=== PATIENT | female | born 1990 | race Caucasian/White ===

== ENCOUNTER 2020-03-17 17:59 | Emergency (ER) | payer OTHER, SELFPAY ==
[2020-03-17 18:07] VITALS: BP 109/63; PULSE 70; RESP 16; TEMP 36.6; O2SAT 100
--- NOTE | 2020-03-17 18:19 | ED.GENADULT ---
HPI - General Adult General Chief complaint: Ear Stated complaint: jaw pain/lump on jaw Time Seen by Provider: 03/17/20 18:19 Source: patient and RN notes reviewed Mode of arrival: ambulatory Limitations: no limitations History of Present Illness HPI narrative: 29-year-old female presents with complaints of painful and swollen lump behind right ear for 1 day. Denies swimming. Yuly says she gets water into ears when washing hair. Denies trouble hearing. Denies URI symptoms, No high fevers or chills. Denies injury to the ear. No nasal drainage and congestion. Denies nausea, vomiting, tinnitus, and dizziness. LMP 1 week ago which is irregular due to Nexplanon. The patient reports she have not been diagnosed with COVID-19. The patient reports she is not waiting for the results of a COVID-19 lab test. The patient reports she do not have fever, chills, weakness, fatigue, myalgia, or facial swelling. The patient reports she do not have a new or worsening cough or shortness of breath. Denies chest pain. The patient reports she do not have any rhinorrhea, congestion, sore throat, loss of taste, abdominal pain, and diarrhea. Tolerating po intake well. Denies recent traveling. Denies concerns for COVID-19 or exposures been home with limited outdoor exposure except for essential household needs and return home. At this time, patient is not suspected of having COVID-19. Some parts of this dictation were generated by voice recognition software and may contain typographical and/or grammatical inaccuracies. Related Data Allergies Allergy/AdvReac Type Severity Reaction Status Date / Time No Known Drug Allergies Allergy Unknown Verified 03/17/20 18:21 Review of Systems Review of Systems: Narrative: CONSTITUTIONAL: Denies fever, chills, sweats. EYES: Denies visual changes, redness, discharge. ENT: Denies rhinorrhea, congestion, sore throat, otalgia, drainage, itching. Complains of pain and swelling behind RT ear. CARDIOVASCULAR: Denies chest pain, palpitations, edema. RESPIRATORY: Denies dyspnea, wheezing, cough. GASTROINTESTINAL: Denies abdominal pain, nausea, vomiting, diarrhea. GENITOURINARY: Denies dysuria, hematuria, abnormal discharge. SKIN: Denies rash or itching. MUSCULOSKELETAL: Denies acute back pain, joint pain, or myalgia. NEUROLOGIC: Denies numbness or focal weakness. PSYCHIATRIC: Denies anxiety or depression. All systems reviewed & are unremarkable except as noted in HPI and below PMFSH Past Medical History Medical History (Updated 03/17/20 @ 18:37 by GIRISH Magdaleno) Asthma Childhood Smoker TMJ (dislocation of temporomandibular joint) Surgical History Surgical History (Updated 03/17/20 @ 18:37 by GIRISH Magdaleno) History of dental surgery [place] teeth Family History Family History (Updated 03/17/20 @ 18:38 by GIRISH Magdaleno) Father Unknown family medical history Mother Degenerative joint disease Of the spine Social History Social History (Updated 03/17/20 @ 18:39 by GIRISH Magdaleno) Smoking packs per day: 1 Smoking cigarettes per day: 20.0 Years smoked: 14 Smoking pack-years: 14.00 Smoking status: Current every day smoker Tobacco type: cigarettes Second hand tobacco smoke exposure: Yes Alcohol intake: never Substance use: current Substance use type: marijuana Living arrangements: with family Occupation/Education: unemployed Gender identity (if verbalized by the patient): Female Sexual Orientation (if Verbalized by the Patient): Straight or Heterosexual Comments At time of signature, agree with nurse past medical, surgical, social, and family history. There is relevant patient's past medical history pertinent to the presenting complaint, no relevant family history pertinent to the presenting complaint. Exam Narrative: Exam Narrative: GENERAL: This is a well-nourished, well-developed patient, in no apparent distress.
== END 2020-03-17 18:38 | disposition home or self-care (01) ==
PROVIDERS: Emergency Provider Nurse Practitioner Family; PCP Family Medicine
DX: H60.391 Other infective otitis externa, right ear (principal); F17.210 Nicotine dependence, cigarettes, uncomplicated
CPT/HCPCS: 99203; G0463

== ENCOUNTER 2021-05-26 08:30 | Emergency (ER) | payer OTHER, SELFPAY ==
[2021-05-26 08:38] VITALS: BP 111/68; PULSE 91; RESP 18; TEMP 36.6; O2SAT 98
--- NOTE | 2021-05-26 08:49 | ED.URI ---
HPI - URI/Sore Throat General Chief Complaint: Upper Respiratory Infection Stated Complaint: Sore Throat Time Seen by Provider: 05/26/21 08:50 Source: patient and RN notes reviewed Mode of arrival: ambulatory Limitations: no limitations History of Present Illness HPI Narrative: 31-year-old female presents concern for sore throat. Reports sore throat for several days that has now evolved into right ear pain. Reports she was exposed to a neighbor with strep throat. She reports occasional nasal congestion, cough. She denies fever, body aches, chills, sweats, headache, nausea, vomiting. Reports she is not vaccinated for Covid. MD elicited complaint: sore throat Related Data Home Medications Medication Instructions Recorded Confirmed etonogestrel [Nexplanon] 68 mg SUBDERMAL ONCE 05/26/21 05/26/21 Allergies Allergy/AdvReac Type Severity Reaction Status Date / Time No Known Drug Allergies Allergy Unknown Verified 05/26/21 08:51 Review of Systems Review of Systems: CONSTITUTIONAL: Denies malaise, chills, sweats, or fever. EYES: Denies visual changes, redness, or discharge. ENT: Reports rhinorrhea, congestion, sinus pain. Reports rhinorrhea, right otalgia and sore throat. CARDIOVASCULAR: Denies chest pain, palpitations, or edema. RESPIRATORY: Reports cough. Denies dyspnea. GASTROINTESTINAL: Denies abdominal pain, nausea, vomiting, diarrhea SKIN: Denies rash or itching. MUSCULOSKELETAL: Denies myalgia. NEUROLOGIC: Denies headache. All systems reviewed & are unremarkable except as noted in HPI and below PMFSH Past Medical History Medical History (Updated 05/26/21 @ 08:57 by Marlin Ellison NP) Asthma Childhood Smoker TMJ (dislocation of temporomandibular joint) Surgical History Surgical History (Updated 03/17/20 @ 18:37 by GIRISH Magdaleno) History of dental surgery [place] teeth Family History Family History (Updated 03/17/20 @ 18:38 by GIRISH Magdaleno) Father Unknown family medical history Mother Degenerative joint disease Of the spine Social History Social History (Updated 03/17/20 @ 18:39 by GIRISH Magdaleno) Smoking packs per day: 1 Smoking cigarettes per day: 20.0 Years smoked: 14 Smoking pack-years: 14.00 Smoking status: Current every day smoker Tobacco type: cigarettes Second hand tobacco smoke exposure: Yes Alcohol intake: never Substance use: current Substance use type: marijuana Gender identity (if verbalized by the patient): Female Sexual Orientation (if Verbalized by the Patient): Straight or Heterosexual Comments At time of signature, agree with nursing past medical, surgical, social and family history. There is no relevant family history pertinent to the presenting complaint Exam Narrative: GENERAL: Well-appearing, well-nourished, and in no acute distress. HEAD: Normocephalic EYES: PERRLA, conjunctivae clear ENT: Nares clear, clear discharge. Mucous membranes moist. TM pearly varela with dull light reflex bilaterally; no tragal tenderness. Oropharynx erythematous without lesions. Tonsils enlarged and without exudate, no drooling, no hoarseness, no trismus, uvula midline. NECK: Supple. No lymphadenopathy CHEST: Clear to auscultation, breath sounds equal. No wheezing, rhonchi, rales, or stridor. No respiratory distress, speaks in full sentences. HEART: Regular rate and rhythm. No murmur heard. SKIN: Warm, dry, no rash. NEURO: Alert and oriented x3. PSYCH: Normal mood and affect Course Course Emergency Course: Patient is aware of diagnosis, understands and agrees to treatment plan. Anticipatory guidance given. Patient agrees to follow-up as directed and is aware of reasons to seek care at the emergency department. Portions of this record may have been created with voice recognition software Vital Signs Vital signs: Vital Signs Temperature 97.8 F 05/26/21 08:38 Pulse Rate 91 05/26/21 08:38 Respiratory Rate 18 05/26
== END 2021-05-26 09:00 | disposition home or self-care (01) ==
PROVIDERS: Emergency Provider Nurse Practitioner; PCP Family Medicine
DX: J02.0 Streptococcal pharyngitis (principal); F17.210 Nicotine dependence, cigarettes, uncomplicated
CPT/HCPCS: 87880; 99213; G0463

== ENCOUNTER 2022-06-08 14:58 | Emergency (ER) | payer OTHER, SELFPAY ==
[2022-06-08 15:17] VITALS: BP 125/60; PULSE 95; RESP 16; TEMP 36.6; O2SAT 99
--- NOTE | 2022-06-08 15:49 | ED.URI ---
HPI - URI/Sore Throat General Chief Complaint: Upper Respiratory Infection Stated Complaint: cough runny nose chest tight aches Time Seen by Provider: 06/08/22 15:35 Source: patient and RN notes reviewed Mode of arrival: ambulatory Limitations: no limitations History of Present Illness HPI Narrative: 32-year-old female presenting for complaint of body aches, cough, and sinus congestion and drainage, onset yesterday. She endorses taking negative COVID test at home. She denies shortness of breath, wheezing, vomiting, fevers or chills. She endorses her son is sick with similar symptoms plus fever. Not taking anything for symptoms. Smokes 1ppd. MD elicited complaint: cough Related Data Home Medications Medication Instructions Recorded Confirmed etonogestrel 68 mg subdermal 68 mg subdermal ONCE 05/26/21 06/08/22 implant (Nexplanon) Allergies Allergy/AdvReac Type Severity Reaction Status Date / Time No Known Drug Allergies Allergy Unknown Verified 06/08/22 15:22 Review of Systems Review of Systems: CONSTITUTIONAL: denies malaise, chills, sweats, fever EYES: Denies visual changes, redness, or discharge ENT: Reports rhinorrhea, congestion,denies sinus pain, otalgia, sore throat CARDIOVASCULAR: Denies chest pain, palpitations, edema RESPIRATORY: Reports cough, post nasal drainage. Denies dyspnea GASTROINTESTINAL: Denies abdominal pain, nausea, vomiting, diarrhea SKIN: Denies rash or itching MUSCULOSKELETAL: Endorses myalgia PMFSH Past Medical History Medical History Asthma Childhood Smoker TMJ (dislocation of temporomandibular joint) Surgical History Surgical History History of dental surgery [place] teeth Family History Family History Father Unknown family medical history Mother Degenerative joint disease Of the spine Social History Social History Smoking packs per day: 1 Smoking cigarettes per day: 20.0 Years smoked: 14 Smoking pack-years: 14.00 Smoking status: Current every day smoker Tobacco type: cigarettes Second hand tobacco smoke exposure: Yes Alcohol intake: never Substance use: current Substance use type: marijuana Gender identity (if verbalized by the patient): Female Sexual Orientation (if Verbalized by the Patient): Straight or Heterosexual Exam Narrative: GENERAL: Ill-appearing, nontoxic EYES: PERRLA, conjunctivae clear ENT: Mucous membranes moist. TMs pearly varela with light reflex bilaterally; no tragal tenderness. Oropharynx erythematous without lesions or exudate, no drooling, no hoarseness, no trismus, uvula midline. CHEST: Clear to auscultation, breath sounds equal. No wheezing, rhonchi, rales, or stridor. No respiratory distress, speaks in full sentences. HEART: Regular rate and rhythm. No murmur heard. SKIN: Warm, dry, no rash. NEURO: Alert and oriented x3. PSYCH: Normal mood and affect Course Course Emergency Course: Patient is aware of diagnosis, understands and agrees to treatment plan. Anticipatory guidance given. Patient agrees to follow-up as directed and is aware of reasons to seek care at the emergency department. Portions of this record may have been created with voice recognition software Level of Care: Express Care Visit Vital Signs Vital signs: Vital Signs Temperature 98 F 06/08/22 15:17 Pulse Rate 95 06/08/22 15:17 Respiratory Rate 16 06/08/22 15:17 Blood Pressure 125/60 06/08/22 15:17 Pulse Oximetry 99 06/08/22 15:17 Oxygen Delivery Room Air 06/08/22 15:17 Temperature 98 F 06/08/22 15:17 Pulse Rate 95 06/08/22 15:17 Respiratory Rate 16 06/08/22 15:17 Blood Pressure 125/60 06/08/22 15:17 Pulse Oximetry 99 06/08/22 15:17 Oxygen Delivery Room Air
== END 2022-06-08 15:57 | disposition home or self-care (01) ==
PROVIDERS: Emergency Provider Nurse Practitioner Family
DX: B34.9 Viral infection, unspecified (principal); J45.909 Unspecified asthma, uncomplicated; F17.210 Nicotine dependence, cigarettes, uncomplicated
CPT/HCPCS: 87804; 99213; G0463

== ENCOUNTER → 2023-07-02 13:27 | Outpatient (CLI) | payer OTHER, SELFPAY ==
--- NOTE | ~2023-07-02 | US_ITS ---
EXAMINATION: US axilla RT INDICATION: Right axillary lymphadenopathy TECHNIQUE: Limited right axillary ultrasound is performed. COMPARISON: None available FINDINGS: There are multiple lymph nodes in the right axilla which demonstrate normal morphology. No suspicious right axillary lymphadenopathy is identified. IMPRESSION: 1. No suspicious right axillary lymphadenopathy identified. Reviewed, dictated and finalized at location A. [facility] JOINER
== END ==
PROVIDERS: PCP Obstetrics & Gynecology; Visit Provider Obstetrics & Gynecology
DX: R59.0 Localized enlarged lymph nodes (principal)
CPT/HCPCS: 76882

== ENCOUNTER 2025-07-12 14:08 | Emergency (ER) | payer OTHER, SELFPAY ==
[2025-07-12 14:14] VITALS: BP 108/70; PULSE 62; RESP 16; TEMP 36.3; O2SAT 99
--- NOTE | 2025-07-12 14:48 | ED.URI ---
HPI - URI/Sore Throat General Chief Complaint: Upper Respiratory Infection Stated Complaint: poss strep Time Seen by Provider: 07/12/25 14:48 Source: patient, RN notes reviewed and old records reviewed Mode of arrival: ambulatory Limitations: no limitations History of Present Illness HPI Narrative: 35-year-old female who presents to [facility] with complaints of sore throat for the past 5 days also with intermittent tenderness to left side of neck that radiates to her left ear, Patient also reports has fine rash on body for the past 3 days which is not itchy. Patient has not taken any OTC medications for her symptoms. MD elicited complaint: sore throat and other (rash) Pertinent past history: other (strep throat) Onset (ago): day(s) (5) Pain scale (0-10): 7 Able to tolerate fluids by mouth: Yes Treatments prior to arrival: none Related Data Home Medications ?Medication ?Instructions ?Recorded ?Confirmed ?Last Taken ?Type etonogestrel 68 mg subdermal 68 mg subdermal ONCE 05/26/21 06/08/22 Unknown History implant (Nexplanon) Allergies Allergy/AdvReac Type Severity Reaction Status Date / Time No Known Drug Allergies Allergy Unknown Verified 06/08/22 15:22 Review of Systems Review of Systems: CONSTITUTIONAL: Denies malaise, chills, sweats, or fever. EYES: Denies visual changes, redness, or discharge. ENT: Reports rhinorrhea, congestion, no sinus pain,+ otalgia and + sore throat. CARDIOVASCULAR: Denies chest pain, palpitations, or edema. RESPIRATORY: Reports dry cough.? Denies dyspnea. GASTROINTESTINAL: Denies abdominal pain, nausea, vomiting, diarrhea SKIN: reports rash or itching. MUSCULOSKELETAL: Denies myalgia. NEUROLOGIC: Denies headache. All systems reviewed & are unremarkable except as noted in HPI and below PMFSH Past Medical History Medical History (Updated 07/14/25 @ 13:12 by Sarah Guajardo APRN) Strep throat Smoker TMJ (dislocation of temporomandibular joint) Asthma Childhood Surgical History Surgical History History of dental surgery [place] teeth Family History Family History Father Unknown family medical history Mother Degenerative joint disease Of the spine Social History Social History Smoking packs per day: 1 Smoking cigarettes per day: 20.0 Years smoked: 14 Smoking pack-years: 14.00 Smoking status: Current every day smoker Tobacco type: cigarettes Second hand tobacco smoke exposure: Yes Alcohol intake: never Substance use: current Substance use type: marijuana Living arrangements: with family Occupation/Education: unemployed Gender identity (if verbalized by the patient): Female Sexual Orientation (if Verbalized by the Patient): Straight or Heterosexual Comments At time of signature, agree with nursing past medical, surgical, social and family history. There is no relevant family history pertinent to the presenting complaint Exam Narrative: GENERAL: Well-appearing, well-nourished, and in no acute distress. HEAD: Normocephalic EYES: PERRLA, conjunctivae clear ENT: Nares clear, turbinates edematous and erythematous, clear discharge. Mucous membranes moist. TM pearly varela with dull light reflex bilaterally; no tragal tenderness. Oropharynx erythematous without lesions. Tonsils red enlarged especially left and with exudate, no drooling, no hoarseness, no trismus, uvula midline.post nasal drainage noted NECK: Supple. positive for lymphadenopathy CHEST: Clear to auscultation, breath sounds equal. No wheezing, rhonchi, rales, or stridor. No respiratory distress, speaks in full sentences.no acute cough or congestion voiced SAO2 99% on room air HEART: Regular rate and rhythm. No murmur heard. SKIN: Warm, dry, fine red rash on body NEURO: Alert and oriented x3. PSYCH: Normal mood and affect Course Course Level of Care: Express Care Visit Vital Signs Vital signs: Vital Signs Temperature 36.3 C L 07/12/25 14:14 Pulse Rate 62 07/12/25 14:14 Respiratory Rate 16 07/12/25 14:14 Blood Pressure 108/70 07/12/25 14:14 Pulse Oximetry 99 07/12/25 14:14 Oxygen Delivery Room Air 07/12/25 14:14 Temperature 36.3 C L 07/12/25 14:14 Pulse Rate 62 07/12/25 14:14 Respiratory Rate 16 07/12/25 14:14 Blood Pressure 108/70 07/12/25 14:14 Pulse Oximetry 99 07/12/25 14:14 Oxygen Delivery Room Air 07/12/25 14:14 reviewed [facility] Narrative Medical decision making narrative: Patient has enlarged red swollen tonsils especially left with exudates, will treat with oral antibiotics and recommend symptoms control with OTC medications. Anticipatory guidance and when to seek care in ED reviewed with patient with voiced understanding Differential Diagnosis Differential Diagnosis: Differential diagnostic considerations for upper respiratory infection include upper respiratory infection, croup, otitis media, sinusitis, viral infection, bronchitis, influenza, pharyngitis, strep, uvulitis.? Lab Data [facility] Lab Attestation statement: I personally reviewed the patient's lab results. Lab results narrative: strep screen negative culture sent Labs: Lab Results 07/12/25 Range/Units 14:20 POC Grp A Strep Screen Negative (Negative) reviewed Critical Care Time Critical Care Time Critical Care Time: No Discharge Plan Discharge Clinical Impression: Exudative tonsillitis Patient Disposition: Home Condition: Stable Instructions: Antibiotic Form, Tonsillitis (ED) Additional Instructions: . Take the entire course of antibiotics. Throw away your current toothbrush and begin using a new toothbrush in 48 hours in order to prevent re-infection. Sanitize all reusable water bottles . Do not share items with others. Salt water gargles may alleviate some of the throat discomfort. You can take Tylenol or ibuprofen per the package instructions for pain/fever. Your strep test today was negative. A throat culture will be sent to the laboratory for further testing. Zyrtec Claritin or Arti daily If your symptoms persist, change or worsen significantly before you can contact your personal physician then please, without delay, go to the emergency department for further evaluation. Follow-up with PCP in 7-10 days or sooner if needed Patient Language: [place] Citizen Prescriptions: New amoxicillin 875 mg tablet 875 mg PO Q12H Qty: 20 0RF No Action Nexplanon 68 mg implant 68 mg SUBDERMAL ONCE Follow-up/Referrals: PHYSICIAN NOT ON STAFF,NONSTAFF [Primary Care Provider] Time of Disposition: 15:00 Quality Je Coma Scale Eyes: Open Verbal: Oriented and Alert Motor: Follows Commands Je Coma Total Score: 15
[2025-07-12 16:02] LABS: EDSTREPNEGPOS1 Negative (Negative)
== END 2025-07-12 15:06 | disposition home or self-care (01) ==
PROVIDERS: Emergency Provider Registered Nurse
DX: J03.90 Acute tonsillitis, unspecified (principal); F17.210 Nicotine dependence, cigarettes, uncomplicated; F12.90 Cannabis use, unspecified, uncomplicated
CPT/HCPCS: 87081; 87880; 99213; G0463